=== PATIENT | female | born 1950 | race Caucasian/White ===

== ENCOUNTER 2016-09-17 17:57 | Emergency (ER) ==
[2016-09-17 18:02] VITALS: BP 147/84; TEMP 97.9; BMI 38.2
--- NOTE | 2016-09-17 18:26 | ED.PDOC ---
General ED Provider: Dr. VILMA BRUMFIELD Chief Complaint: Extremity Pain/Injury Stated Complaint: Sciatic nerve pain Time Seen by Physician: 18:22 Mode of Arrival: Wheelchair Information Source: Patient Exam Limitations: No limitations Primary Care Provider: BHUMIKA ALLEN Referred to ED by: PCP (Dr Allen called to speak with ER physician; CT Lumbar) Nursing and Triage Documentation Reviewed and Agree: Yes Review of Systems - Review Of Systems Constitutional: Reports: No symptoms All Other Systems: Reviewed and Negative Past Medical History - Past Medical History Previously Healthy: Yes Endocrine: Reports: DM 2, Hypothyroid Cardiovascular: Reports: Hypertension Respiratory: Reports: None Hematological: Reports: None Gastrointestinal: Reports: None Genitourinary: Reports: None Neuro/Psych: Reports: None Musculoskeletal: Reports: None Cancer: Reports: None Last Menstrual Period: several years ago - Surgical History General Surgical History: Reports: None - Family History Family History: Reports: None - Social History Smoking Status: Current every day smoker Hx Substance Use: No Alcohol Screening: None - Immunizations Tetanus Shot up to Date: Yes Physical Exam - Physical Exam Appearance: Well-appearing Pain Distress: Moderate (sits with weight on R buttocks; L LE extended - moves voluntarily) Eyes: MARTA, EOMI Neck: Supple Respiratory: Airway patent, Breath sounds clear, Respirations nonlabored Cardiovascular: RRR, Pulses normal Musculoskeletal: Normal strength, ROM intact (L LE not tested due to pain) Skin: Warm, Dry, Normal color Neurological: Sensation intact Interpretation - Radiology Interpretation Radiology Interpretation By: Radiologist Exam Interpreted: CT Scan (Lumbar) Xray Comments: Multilevel degenerative disc disease with multilevel central canal neural Re-Evaluation - Re-Evaluation Time of Re-Evaluation: 18:51 Status: Unchanged (No additional concerns) Skin: Warm and Dry Neuro: Alert and Oriented X3 Critical Care Note - Critical Care Note Total Time (mins): 15 Course - Course Orders, Labs, Meds: Orders Category Date Time Status Dexamethasone 4 mg/ml Inj [Decadron 4 mg/ml Sdv] MEDS 09/17/16 19:26 Stat 2 mg IM ONCE STA Ketorolac Tromethamine [Toradol] MEDS 09/17/16 19:25 Discontinued 30 mg IM ONCE STA CT LUMBAR SPINE W/O CONTRAST Stat RADS 09/17/16 18:27 Completed Medications Generic Name Dose Route Start Last Admin Trade Name Freq PRN Reason Stop Dose Admin Dexamethasone Sodium Phosphate 2 mg 09/17/16 19:26 Decadron 4 Mg/Ml Sdv IM 09/17/16 19:27 ONCE STA Discontinued Medications Generic Name Dose Route Start Last Admin Trade Name Jose C PRN Reason Stop Dose Admin Ketorolac Tromethamine 30 mg 09/17/16 19:25 Toradol IM 09/17/16 19:26 ONCE STA Vital Signs: Temp Pulse Resp BP Pulse Ox 09/17/16 17:57 97.9 F 79 16 147/84 H 95 Departure - Departure Time of Disposition: 19:27 Disposition: HOME SELF-CARE Discharge Problem: Sciatica of left side Instructions: Sciatica (ED) Condition: Good Pt referred to PMD for follow-up: Yes (Call for appointment) Additional Instructions: Follow up with Dr. Allen; call his office tomorrow and let them know how you are doing. Use regular medications as prescribed, including Pain Management plan. Allergies/Adverse Reactions: Allergies Beta-Blockers (Beta-Adrenergic Bloc Adverse Reaction (Severe, Unverified 18:03) Anaphylaxis states, it stopped her heart during surgery" indomethacin [From Indocin] Adverse Reaction (Unverified 09/17/16 18:03) indomethacin sodium [From Indocin] Adverse Reaction (Unverified 09/17/16 18:03) povidone-iodine [From Betadine] Adverse Reaction (Unverified 09/17/16 18:03) soap [From Betadine] Adverse Reaction (Unverified 09/17/16 18:03) Home Medications: Ambulatory Orders Aspirin [Aspirin EC] 81 mg PO DAILY 11/06/12 Glipizide [Glipizide ER] 5 mg PO BID 11/06/12 Hydrocodone Bit/Acetaminophen [Hydrocodon-Acetaminophn 10-325] 1 tab PO TID PRN 11/06/12 Levothyroxine Sodium [Tirosint] 25 mcg PO DAILY 11/06/12 Lisinopril 2.5 mg PO DAILY 11/06/12 Rosuvastatin Calcium [Crestor] 5 mg PO DAILY 11/06/12 Sulfamethoxazole/Trimethoprim [Bactrim Ds Tablet] 1 each PO BID #14 tablet 08/07
--- NOTE | 2016-09-17 19:10 | CT ---
EXAM: CT scan lumbar spine HISTORY: Back pain COMPARISON: CT scan lumbar spine 09/05/2016 FINDINGS: Contiguous axial images were obtained through the lumbar spine utilizing 3-mm collimation . Sagittal and coronal reconstructions were imaged reviewed... The vertebral bodies are normal and height. Degenerate disc disease is noted at L3-L4 through L5-S1. There is 2.5 mm retrolisthesis o f L3 in relation L4. There is 3 mm anterolisthesis of L4 upon L5 Of two - L3 there is mild concent annamaria disc bulge with facet arthropathy. Central canal foramen are patent. And L3-L4 there is concen tric disc bulge with ligamentum flavum and facet hypertrophy causing early triangulation of the cent ral canal. At L4-L5 and slightly eccentric disc osteophyte complex to the left with ligamentum flavu m and facet hypertrophy narrows the central canal, left neural foramen and bilateral lateral recesse s.. At L5-S1 there is disc osteophyte complex with facet arthropathy with mild central canal and ri ght neural foramen narrowing. IMPRESSION: Multilevel degenerate disc disease with multilevel central canal neural foraminal narrowing.
[2016-09-17] MEDS ORDERED: TORADOL IM STA (19:25)
[2016-09-17] MEDS ORDERED: DECADRON 4 MG/ML SDV IM STA (19:26)
== END 2016-09-17 19:50 | disposition home or self-care (01) ==
LOC: ED 17:57
DX: M54.32 Sciatica, left side (principal); F17.210 Nicotine dependence, cigarettes, uncomplicated
CPT/HCPCS: 96372; 99283